=== PATIENT | female | born 2000 | race Caucasian/White ===

== ENCOUNTER 2018-03-10 12:35 | Emergency (ER) | payer BC ==
[2018-03-10 13:01] VITALS: BP 135/67
--- NOTE | 2018-03-10 13:10 | UC ---
Abdominal Pain Female HPI - HPI Summary HPI Summary: Pt reports there is an active Saturday morning woke with severe right flank pain. Patient states she had nausea and vomited 2. Patient states she is unable to comfortable. Patient states pain subsided. Patient states she does have a little bit of discomfort until last night when again the pain woke her up around 4 AM. Patient does not take any analgesia. Patient denies fevers or chills. Patient does have a little bit of urinary frequency. Patient has her menses but no gross hematuria. Patient without any trauma. Patient states is not related to eating. Patient without any diarrhea. Patient mother has a history of kidney stones. Patient's never been diagnosed with a kidney stone but has had a kidney infection. Pt has no concerns of STD eyes of . Patient's medications reviewed this visit. - History of Current Complaint Chief Complaint: UCAbdominalPain Stated Complaint: RIGHT SIDE PAIN Time Seen by Provider: 03/10/18 13:01 Hx Obtained From: Patient Hx Last Menstrual Period: 03/06/18 Onset/Duration: Sudden Onset, Lasting Hours Timing: Intermittent Episodes Lasting: - 1 hour Severity Initially: Moderate Severity Currently: Mild Pain Intensity: 3 Pain Scale Used: 0-10 Numeric Location: Other - right flank Radiates to: Flank Character: Colicy, Sharp Aggravating Factor(s): Nothing Alleviating Factor(s): Nothing Allergies/Adverse Reactions: Allergies Allergy/AdvReac Type Severity Reaction Status Date / Time watermelon Allergy "Weird Verified 03/10/18 12:57 feeling [and] scratchy throat" Home Medications: Home Medications Desog-E.estradiol/E.estradiol [Azurette 0.15-0.02/0.01 mg (09/09)] 1 tab PO 1530 03/10/18 [History Confirmed 03/10/18] PMH/Surg Hx/FS Hx/Imm Hx Previously Healthy: Yes - Surgical History Surgical History: None - Family History Known Family History: Positive: Other - mom with renal stones, sister with ovarian cysts - Social History Lives: With Family Alcohol Use: None Substance Use Type: None Smoking Status (MU): Never Smoked Tobacco - Immunization History Vaccination Up to Date: Yes Review of Systems All Other Systems Reviewed And Are Negative: Yes Constitutional: Positive: Negative Skin: Positive: Negative Eyes: Positive: Negative Gastrointestinal: Positive: Vomiting, Nausea Genitourinary: Positive: Negative. Negative: Frequency, Urgency, Vaginal/ Penile Burning, Vaginal/Penile Discharge Motor: Positive: Negative Physical Exam - Summary Physical Exam Summary: Vital Signs Reviewed: Yes A+Ox3, no distress Eyes: Conjunctiva Clear, PANCHO. EOM intact and full ENT: Hearing grossly normal TM x 2 clear, mmoist, uvula midline, no exudate, no erythema Neck: Positive: Supple Respiratory: Positive: No respiratory distress, No accessory muscle use + CTA throughout no w/r Cardiovascular: RRR nl s1, s2 no m/r CBT <2 sec abd soft + BS nt/nd no guarding, no distension mild right CVA no suprapubic pain. no RUQ pain Musculoskeletal Exam: AGOSTO x 4 without difficulty Strength Intact, ROM Intact Neurological: Positive: Alert, + sensation throughout Psychological: Positive: Normal Response To Family Skin: Positive: no rash, no ecchymosis Triage Information Reviewed: Yes Vital Signs: Initial Vital Signs Temp 97.9 F 03/10/18 12:53 Pulse 70 03/10/18 12:53 Resp 16 03/10/18 12:53 BP 135/67 03/10/18 12:53 Pulse Ox 100 03/10/18 12:53 Diagnostics - Radiology No standard instances Radiology Interpretation Completed By: Radiologist - Patient Name: SHARRON MARCH Medical Record#: [id number] Ordering Physician: Zulma Chaney MD Acct.#: [id number] : 2000 Age: 17 Sex: F Location: [facility] Exam Date: 03/10/18 1317 ADM Status: [facility] ER Order Information: CT ABD/PEL W/O Accession Number: [id number] CPT: 24777 CLINICAL HISTORY: right flank pain, woke with vomiting/ paimn COMPARISON: None TECHNIQUE: Multiple contiguous axial CT scans were obtained of the abdomen and pelvis, without intravenous contrast enhancement. Coronal and sagittal multiplanar reformations are submitted for review. Oral contrast was not administered. FINDINGS: Evaluation is limited due to the lack of intravenous contrast. This limits evaluation of the solid organs and vasculature. LUNG BASES: The lung bases are clear. LIVER: The liver is normal in shape, size, contour, and attenuation. BILE DUCTS: There is no intrahepatic or extrahepatic biliary dilatation. GALLBLADDER: The gallbladder is normal, without pericholecystic inflammatory change. PANCREAS: The pancreas is normal, without mass or ductal dilatation. SPLEEN: Normal in size and appearance. UPPER GI TRACT: Evaluation of the gastrointestinal tract is limited by incomplete gastric distention. The upper GI tract is unremarkable. SMALL BOWEL AND MESENTERY: The small bowel is normal in contour, course, and caliber. There is no obstruction or dilatation. COLON: The colon is normal in contour, course, caliber. There is no pericolonic inflammatory change. ADRENALS: Normal bilaterally. KIDNEYS: There is a 0.5 cm calculus of the right UVJ with moderate to severe pelvocaliectasis and hydroureter. BLADDER: As noted above, there is a 0.5 cm calculus of the right UVJ. The bladder is incompletely distended. PELVIC ORGANS: The uterus and adnexa are grossly normal for technique. AORTA: The aorta is normal. IVC: Unremarkable LYMPH NODES: There is no lymphadenopathy by size criteria. ABDOMINAL WALL: There is no evidence for abdominal wall hernia. BONES AND SOFT TISSUES: There are bilateral pars defects at L5 with trace anterolisthesis of L5 on S1. OTHER: None IMPRESSION: 1. 0.5 CM RIGHT UVJ STONE WITH RIGHT-SIDED HYDRONEPHROSIS. 2. 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 Absence of a signature indicates the report is in a draft status and still needs to be finalized. In the event this document was created by someone other than the signing Provider, the individual initiating the document will be listed in the "Entered by:" or "Dictated by:" farnsworth. 1 of 2 Re-Evaluation - Re-Evaluation First Eval Comment: reviewed CT with pt. jaja stoddard. Spoke to pt's urologist in [place] - [phone] - Dr. Clemens. requested records be faxed - pt signing consent - [phone] for fax. Willc all pt by 4pm with appt. Pt comfortable and in agreement with plan. urine culture. strainer given. strict return precautions Abd Pain Female Course/Dx - Course Course Of Treatment: Patient presents with right flank pain. Patient states at present in the 2 or 3 out of 10. Patient has woken twice in the last 3 days with severe right flank pain. Patient states she is unable to comfortable has vomiting. Patient without history of similar. Patient's mom does have a history of renal colic. Patient currently with her menses. Patient is not taken anything for pain. Patient states she does have little bit odor to her urine and has had pyelonephritis in the past. Patient's exam and history concerning for renal colic. Patient's mother with kidney stones. Will check CT noncontrast. Recommend Motrin Tylenol for pain. Patient declined at present. Hydrate. Urine is concerning for UTI so will cultures are antibiotic spray patient comfortable in agreement with plan. - Differential Dx/Diagnosis Provider Diagnoses: UTI. 5mm UVJ stone on right. hydronephrosis Discharge - Sign-Out/Discharge Documenting (check all that apply): Patient Departure All imaging exams completed and their final reports reviewed: Yes - Discharge Plan Condition: Stable Disposition: HOME Prescriptions: Cephalexin CAP* [Keflex 500 CAP*] 500 mg PO TID #30 cap Tamsulosin HCl [Flomax] 0.4 mg PO DAILY WITH MEAL #7 cap Patient Education Materials: Urinary Tract Infection in Women (ED), Renal Colic (ED) Referrals: Mona JONES,Von Hernandez [Primary Care Provider] - Additional Instructions: - Drink plenty of non-alcoholic, non-caffinated beverage - Take antibiotics and flomax as prescribed - Okay to alternate ibuprofen (Advil. Motrin) 600mg and tylenol every 3hours for pain. Take with food - you should receive call from Dr. Clemens's office today - please call them if you do not hear by 3:45pm - bring a copy of your disc with you to your appointment - if you pain becomes uncontrolled, vomiting, fever or ANY concerns it is recommended you go to the emergency department - strain your urine - if you catch your stone bring it to your follow-up appointment - Billing Disposition and Condition Condition: STABLE Disposition: Home
--- NOTE | 2018-03-12 07:56 | UC ---
- Progress Note Progress Note: Patient seen in clinic March 10, 2018. Urine culture comes back today with Escherichia coli greater than 100,000. Patient started on Keflex and Flomax on March 10, 2018. On CT scan and March 10, 2018 patient had a 5 mm kidney stone at the right UVJ with right sided hydronephrosis. Nursing to call patient. With a urinary tract infection with an obstructing kidney stone she needs immediate evaluation by urologist. Nursing to determine if the patient started been seen by a urologist or emergency department and if she has not she needs to do so today. Re-Evaluation - Re-Evaluation First Eval Comment: reviewed CT with pt. hunt radha keflex, flomax. Spoke to pt's urologist in [place] - [phone] - Dr. Clemens. requested records be faxed - pt signing consent - [phone] for fax. Willc all pt by 4pm with appt. Pt comfortable and in agreement with plan. urine culture. strainer given. strict return precautions Discharge - Sign-Out/Discharge Documenting (check all that apply): Patient Departure All imaging exams completed and their final reports reviewed: Yes - Discharge Plan Condition: Stable Disposition: HOME Prescriptions: Cephalexin CAP* [Keflex 500 CAP*] 500 mg PO TID #30 cap Tamsulosin HCl [Flomax] 0.4 mg PO DAILY WITH MEAL #7 cap Patient Education Materials: Urinary Tract Infection in Women (ED), Renal Colic (ED) Referrals: Mona JONES,Von Hernandez [Primary Care Provider] - Additional Instructions: - Drink plenty of non-alcoholic, non-caffinated beverage - Take antibiotics and flomax as prescribed - Okay to alternate ibuprofen (Advil. Motrin) 600mg and tylenol every 3hours for pain. Take with food - you should receive call from Dr. Clemens's office today - please call them if you do not hear by 3:45pm - bring a copy of your disc with you to your appointment - if you pain becomes uncontrolled, vomiting, fever or ANY concerns it is recommended you go to the emergency department - strain your urine - if you catch your stone bring it to your follow-up appointment - Billing Disposition and Condition Condition: STABLE Disposition: Home
--- NOTE | 2018-03-13 07:23 | UC ---
- Progress Note Progress Note: + sensitive to keflex no change dianaj 03/13/2018 Re-Evaluation - Re-Evaluation First Eval Comment: reviewed CT with pt. gilbert garcia keflex, flomax. Spoke to pt's urologist in [place] - [phone] - Dr. Clemens. requested records be faxed - pt signing consent - [phone] for fax. Willc all pt by 4pm with appt. Pt comfortable and in agreement with plan. urine culture. strainer given. strict return precautions Discharge - Sign-Out/Discharge Documenting (check all that apply): Post-Discharge Follow Up All imaging exams completed and their final reports reviewed: Yes - Discharge Plan Condition: Stable Disposition: HOME Prescriptions: Cephalexin CAP* [Keflex 500 CAP*] 500 mg PO TID #30 cap Tamsulosin HCl [Flomax] 0.4 mg PO DAILY WITH MEAL #7 cap Patient Education Materials: Urinary Tract Infection in Women (ED), Renal Colic (ED) Referrals: Mona JONES,Von Hernandez [Primary Care Provider] - Additional Instructions: - Drink plenty of non-alcoholic, non-caffinated beverage - Take antibiotics and flomax as prescribed - Okay to alternate ibuprofen (Advil. Motrin) 600mg and tylenol every 3hours for pain. Take with food - you should receive call from Dr. Clemens's office today - please call them if you do not hear by 3:45pm - bring a copy of your disc with you to your appointment - if you pain becomes uncontrolled, vomiting, fever or ANY concerns it is recommended you go to the emergency department - strain your urine - if you catch your stone bring it to your follow-up appointment - Billing Disposition and Condition Condition: STABLE Disposition: Home
== END 2018-03-10 14:35 | disposition home or self-care (01) ==
LOC: UCCORT 12:35
DX: N39.0 Urinary tract infection, site not specified (principal); B96.20 Unspecified Escherichia coli [E. coli] as the cause of diseases classified elsewhere; N20.1 Calculus of ureter; N13.30 Unspecified hydronephrosis
CPT/HCPCS: 74176; 81003; 84702; 87077; 87086; 87186; 99212; G0463